=== PATIENT | male | born 1980 | race Two or more races ===

== ENCOUNTER 2017-06-08 04:23 | Emergency (ER) | payer OTHER ==
[~2017-06-08] VITALS: Ht 157.5 cm; Wt 72.6 kg
[2017-06-08 04:31] VITALS: BP 125/83
[2017-06-08 04:45] VITALS: BP 125/83
[2017-06-08] MEDS ORDERED: Ketorolac 30mg Inj IM ONE (04:45)
[2017-06-08] MEDS ORDERED: Cyclobenzaprine 10mg Tab ORAL ONE (04:45)
--- NOTE | 2017-06-10 12:59 | Emergency Room Report ---
History of Present Illness General Chief Complaint: Medical Clearance Source: Patient Present Illness HPI 36-year-old male presents ED for evaluation. Patient is in police custody. Is here for care home clearance. Patient states he is having back pain which started after jumping a fence tonight. Denies landing on his back. States he's been having chronic back pain for many years now. Takes only marijuana for the pain. Throbbing, 9 out of 10, nonradiating. Pain is typical of his normal back pain. Denies bowel or bladder incontinence. Denies leg or motor weakness. No other aggravating relieving factors. Denies any other associated symptoms Allergies: Coded Allergies: No Known Allergies (Unverified , 06/08/17) Patient History Past Medical History: none Past Surgical History: none Pertinent Family History: none Social History: Denies: smoking, alcohol use, drug use Immunizations: UTD Reviewed Nursing Documentation: PMH: Agreed; PSxH: Agreed Nursing Documentation-PMH Past Medical History: No Stated History Review of Systems All Other Systems: negative except mentioned in HPI Physical Exam Vital Signs Date Time Temp Pulse Resp B/P (MAP) Pulse Ox O2 Delivery O2 Flow Rate FiO2 06/08/17 04:21 98.5 103 14 125/83 97 Room Air 98.4 Sp02 EP Interpretation: reviewed, normal General Appearance: no apparent distress, alert, GCS 15, non-toxic Head: normocephalic, atraumatic Eyes: bilateral eye normal inspection, bilateral eye PERRL ENT: hearing grossly normal, normal pharynx, no angioedema, normal voice Neck: full range of motion, supple/symm/no masses Respiratory: chest non-tender, lungs clear, normal breath sounds, speaking full sentences Cardiovascular #1: regular rate, rhythm, no edema Cardiovascular #2: 2+ carotid (R), 2+ carotid (L), 2+ radial (R), 2+ radial (L) , 2+ dorsalis pedis (R), 2+ dorsalis pedis (L) Gastrointestinal: normal bowel sounds, non tender, soft, non-distended, no guarding, no rebound Rectal: deferred Genitourinary: normal inspection, no CVA tenderness, no vertebral tenderness Musculoskeletal: gait/station normal, normal range of motion, non-tender, tender - paraspinal lumbar tenderness Neurologic: alert, oriented x3, responsive, motor strength/tone normal, sensory intact, speech normal Psychiatric: judgement/insight normal, memory normal, mood/affect normal, no suicidal/homicidal ideation Reflexes: 3+ bicep (R), 3+ bicep (L), 3+ tricep (R), 3+ tricep (L), 3+ knee (R) , 3+ knee (L) Skin: normal color, no rash, warm/dry, well hydrated Lymphatic: no adenopathy Medical Decision Making Diagnostic Impression: Primary Impression: Back pain Qualified Codes: M54.5 - Low back pain Additional Impression: Medical clearance for incarceration ER Course Hospital Course 36-year-old male presents ED complaining of lower back pain. here for care home clearance Differential diagnoses include: pyelonephritis, kidney stone, muscle strain, Lspine fracture Clinical course Patient placed on stretcher. After initial history, physical exam reveals a male in no acute distress. There is no vertebral body tenderness. No focal neurological deficits. I ordered toradol for pain. Upon reassessment patient states pain has improved. Patient is cleared to be taken into police custody Diagnosis - back pain, medical clearance for incarceration Stable and discharged to police custody. Followup with PMD. Return to ED if symptoms recur or worsen Last Vital Signs Date Time Temp Pulse Resp B/P (MAP) Pulse Ox O2 Delivery O2 Flow Rate FiO2 06/08/17 04:45 98.4 103 14 125/83 97 Room Air 209.1 Status: improved Disposition: D/C TO LAW ENFORCEMENT IN CUST Condition: Stable Scripts No Active Prescriptions or Reported Meds Departure Forms: Care Home Clearance Patient Instructions: Back Pain, Adult, [id number] BRIAN EDEN M.D. Jun 10, 2017 12:59
== END 2017-06-08 04:45 ==
LOC: EDBD 04:23 → EMR 04:33
DX: M54.5 Low back pain (principal)
CPT/HCPCS: 96372; 99283; J1885